=== PATIENT | male | born 1960 | race Caucasian/White ===

== ENCOUNTER → 2017-12-31 | Outpatient (CLI) | payer OTHER ==
[2017-12-31] MEDS: ALBUTEROL SULFATE 2.5 MG/3 ML NEBU. NEB (08:29)
== END | disposition home or self-care (01) ==
LOC: PF 07:54
DX: M19.012 Primary osteoarthritis, left shoulder (principal); M19.011 Primary osteoarthritis, right shoulder; M54.5 Low back pain; J44.9 Chronic obstructive pulmonary disease, unspecified; R10.2 Pelvic and perineal pain
CPT/HCPCS: 72100; 72170; 73030; 94060; 94640; J7613